=== PATIENT | female | born 1985 | race Caucasian/White ===

== ENCOUNTER → 2017-09-16 15:56 | Outpatient (CLI) | payer SELFPAY ==
[2017-09-16 17:08] LABS: Absolute Lymphocyte Count 1.79 X10^3/ul (0.83-4.51); Absolute Neutrophil Count 6.2 X10^3/uL (2.0-7.7); Basophil# 0.02 X10^3/uL; Basophil% 0.2 % (0-1); Eosinophil# 0.04 X10^3/uL; Eosinophils% 0.5 % (0-5); Hematocrit 33.4 % (37-47); Hemoglobin 11.5 g/dl (12.0-15.0); Lymphocyte # 1.79 X10^3/ul (4.0); Lymphocyte % 21.1 % (19-41); Mean Corp Hgb Conc 34.4 g/gl (32-36); Mean Corpuscular Hgb 31.7 pg (27.0-32.0); Mean Platelet Vol. 8.9 fl (6.2-12.0); Monocyte# 0.37 X10^3/uL; Monocyte% 4.4 % (0-10); Neutrophil # 6.23 X10^3/uL (2.7-7.7); Neutrophil % 73.6 % (47-70); Platelet Count 229 K/mm3 (150-450); RBC Distribution Width CV 12.8 % (11.6-14.6); RBC Distribution Width SD 41.9 fl (35.1-43.9); Red Blood Count 3.63 M/mm3 (4.2-5.4); White Blood Count 8.5 K/mm3 (4.4-11.0)
[2017-09-16 17:14] LABS: POSITIVE COUNT NO; POSITIVE DIFFERENTIAL NO; POSITIVE MORPHOLOGY NO
[2017-09-16 18:34] LABS: HIV - WCH Non-Reactive (Nonreactive)
[2017-09-16 19:51] LABS: Chlamydia Trachomatis by PCR Negative (Negative); Neisserai gonorrhoeae by PCR Negative (Negative); Probe Check PASS; Sample Adequacy Control PASS; Specimen Processing Control PASS
[2017-09-18 11:45] LABS: HEPATITIS B SURFACE AG Negative (Negative)
[2017-09-20 02:54] LABS: Rapid Plasmin Reagin (RPR) NONREACTIVE (NONREACTIVE)
== END ==
LOC: POLAB3 16:03 → LAB 16:11
PROVIDERS: Visit Provider Obstetrics & Gynecology
DX: Z34.82 Encounter for supervision of other normal pregnancy, second trimester (principal)
CPT/HCPCS: 36415; 85025; 86592; 86703; 86762; 86850; 86900; 87086; 87340; 87491; 87591

== ENCOUNTER → 2017-09-16 18:57 | Outpatient (CLI) | payer SELFPAY ==
[2017-09-20 11:43] LABS: HPV APTIMA, High Risk Negative (Negative)
== END ==
PROVIDERS: Visit Provider Obstetrics & Gynecology
DX: Z12.4 Encounter for screening for malignant neoplasm of cervix (principal)
CPT/HCPCS: 88175; G0145

== ENCOUNTER → 2017-10-28 12:07 | Outpatient (CLI) | payer SELFPAY ==
--- NOTE | 2017-10-28 12:12 | US_ITS ---
STUDY: SECOND AND THIRD TRIMESTER OBSTETRICAL ULTRASOUND REASON FOR EXAM: Female, 31 years old. Routine survey. LMP: June 05, 2017. TECHNIQUE: Transabdominal PRIOR ULTRASOUND: None. FINDINGS: There is a single intrauterine fetus. The fetus is in a transverse lie with the head on the maternal right side. There is demonstrated cardiac activity with a heart rate of 149 bpm. There is a normal amniotic fluid volume. The largest amniotic fluid pocket measures 3.9 cm x 3.7 cm. The placenta is posterior in location and is not low lying. There are Grade 0 placental changes. The cervix measures 6.3 cm in length. The adnexal regions are not visualized. BIOMETRY: BPD: 5.04 cm: 21 weeks, 2 days HC: 18.86 cm: 21 weeks, 2 days AC: 16.54 cm: 21 weeks, 5 days FL: 3.43 cm: 20 weeks, 6 days CI: 77% FL/BPD: 68% FL/HC: FL/AC: 21% HC/AC: 1.14 age by current US: 21 weeks, 2 days. LADARIUS by current US: March 08, 2018. Estimated weight: 408 grams, +/- 60 grams, 73 %. Age by LMP: 20 weeks, 5 days. LADARIUS by LMP: March 12, 2018. ANATOMY: Gender: Male Cranium: Normal lateral ventricles. Normal choroid plexus. Normal cerebellum. Normal cisterna magna. Normal face, nose and lips. Chest: Normal 4-chamber heart. Abdomen/Pelvis: Normal diaphragm. Normal stomach. Normal abdominal wall. Normal cord insertion. Normal 3 vessel cord. Normal kidneys. Normal bladder. Spine: Normal cervical spine. Normal thoracic spine. Normal lumbar spine. Normal sacrum. Extremities: Normal bilateral upper extremities. Normal bilateral lower extremities. US/OB Anatomy Scan IMPRESSION: Single live intrauterine gestation with a mean gestational age of 21 weeks and 2 days. Electronically Signed: Cb Alicea MD at 14:55 EDT Tel [phone], Service support ,
== END ==
PROVIDERS: Visit Provider Nurse Practitioner Women's Health
DX: Z36.3 Encounter for antenatal screening for malformations (principal)
CPT/HCPCS: 76805

== ENCOUNTER → 2017-12-11 10:12 | Outpatient (CLI) | payer OTHER, SELFPAY ==
[2017-12-11 11:40] LABS: Absolute Lymphocyte Count 1.44 X10^3/ul (0.83-4.51); Basophil# 0.03 X10^3/uL; Basophil% 0.4 % (0-1); Eosinophil# 0.05 X10^3/uL; Eosinophils% 0.6 % (0-5); Hematocrit 34.5 % (37-47); Hemoglobin 11.3 g/dl (12.0-15.0); Lymphocyte # 1.44 X10^3/ul (4.0); Lymphocyte % 17.9 % (19-41); Mean Corp Hgb Conc 32.8 g/gl (32-36); Mean Corpuscular Hgb 31.3 pg (27.0-32.0); Mean Corpuscular Volume 95.6 fL (81-99); Monocyte# 0.45 X10^3/uL; Monocyte% 5.6 % (0-10); Neutrophil # 6.04 X10^3/uL (2.7-7.7); Neutrophil % 75.1 % (47-70); POSITIVE COUNT NO; POSITIVE DIFFERENTIAL NO; POSITIVE MORPHOLOGY NO; Platelet Count 214 K/mm3 (150-450); RBC Distribution Width CV 13.1 % (11.6-14.6); RBC Distribution Width SD 46.1 fl (35.1-43.9); Red Blood Count 3.61 M/mm3 (4.2-5.4)
[2017-12-11 11:56] LABS: Glucose Challenge Gest 1H 50g 97 mg/dL (70-140)
== END ==
PROVIDERS: Visit Provider Obstetrics & Gynecology
DX: Z34.82 Encounter for supervision of other normal pregnancy, second trimester (principal)
CPT/HCPCS: 36415; 82950; 85025

== ENCOUNTER → 2018-02-18 13:33 | Outpatient (CLI) | payer OTHER, SELFPAY ==
[2018-02-18 14:45] LABS: Group B Strep DNA By PCR Negative (Negative); Internal Control PASS; Probe Check PASS; Specimen Processing Control PASS
== END ==
PROVIDERS: Visit Provider Nurse Practitioner Women's Health
DX: Z34.90 Encounter for supervision of normal pregnancy, unspecified, unspecified trimester (principal)
CPT/HCPCS: 87081; 87653

== ENCOUNTER 2018-03-05 14:40 | Outpatient (CLI) | payer SELFPAY ==
[2018-03-05 14:51] VITALS: BMI 24.2
--- NOTE | 2018-03-05 22:23 | OB.TRI.NOTE ---
- Problem List (1) False labor Status: Acute (2) Supervision of normal Status: Acute Qualifiers: Comment: PRR LADARIUS 03/15/18 Boy. Angelika Lainez Jamin, Ivan. Scott History of Present Illness Date of Service: 03/05/18 Was patient seen by the physician?: No Reason For Visit: R/O LABOR Date of Service: 03/05/18 Final LADARIUS: 03/15/18 Final LADARIUS Source: US >20 weeks Gestational age: 38 Weeks and 4 Days History of Present Illness: regular ctx q 10-15 Allergies No Known Allergies Allergy (Verified 03/05/18 14:58) - Pertinent Past Medical History Medical History: Past Medical History (Last Reviewed 03/04/18 @ 09:59 by Betsy Kearney) Gestational diabetes Physical Exam Cervix Dilation (cm): 5 NST - FHR Rate Baby A Baseline: 130 Variability:: Moderate Accelerations:: 15 x 15 Decelerations:: None NST Reactive:: Yes FHR Category:: Category I Uterine Activity:: q10-15 min Impression/Plan minimal cervical change- patient wishes to go home as they have decreased. labor precautions reviewed
== END 2018-03-05 17:00 | disposition home or self-care (01) ==
LOC: WPOUT 14:50 → WP 14:50
PROVIDERS: Visit Provider Obstetrics & Gynecology
DX: O47.1 False labor at or after 37 completed weeks of gestation (principal); Z3A.38 38 weeks gestation of pregnancy
CPT/HCPCS: 59025; 59050; 99218; G0378

== ENCOUNTER 2018-03-05 23:45 | Inpatient (IN) | payer SELFPAY, OTHER ==
[2018-03-06 00:16] LABS: Hemoglobin 11.1 g/dl (12.0-15.0); Mean Corp Hgb Conc 33.6 g/gl (32-36); Mean Corpuscular Hgb 32.1 pg (27.0-32.0); Mean Corpuscular Volume 95.4 fL (81-99); Mean Platelet Vol. 9.4 fl (6.2-12.0); Platelet Count 187 K/mm3 (150-450); RBC Distribution Width CV 13.4 % (11.6-14.6); Red Blood Count 3.46 M/mm3 (4.2-5.4); White Blood Count 11.5 K/mm3 (4.4-11.0)
[2018-03-06 00:20] LABS: Scan Indicated on CBC? Y/N NO
[2018-03-06] MEDS: Lactated Ringers 1,000 ML 50 ML IV (00:30)
[2018-03-06 00:36] VITALS: BMI 24.2
--- NOTE | 2018-03-06 00:39 | PCM.HP.OB ---
- Problem List (1) Active labor Status: Acute (2) Supervision of normal Status: Acute Qualifiers: Comment: PRR LADARIUS 03/15/18 Boy. Angelika Lainez Jamin, Ivan. Scott History Date of Admission: 03/06/18 Final LADARIUS: 03/15/18 Final LADARIUS Source: US >20 weeks Gestational age: 38 Weeks and 5 Days History of this : This is a 32 year-old, at 38 weeks gestational age presents IAL 7-8 cm dilated. she dneies any vaginal bleeding or lof, admits good fm no regular ctx Medical History: Medical History (Last Reviewed 03/04/18 @ 09:59 by Betsy Kearney) Gestational diabetes O24.419 Allergies No Known Allergies Allergy (Verified 03/05/18 14:58) Home Medications: Home Medications vitamin,calcium,plcqgvoj-nlgx-jyevd acid tablet 1 tab PO QDAY 09/16/17 Smoking Status: Never smoker Alcohol: None Number of Fetus(es): 1 Heart Tracin moderate vairability reactive no decels TOCO Analysis: q4-5 History Past Pregnancies: Past Pregnancies previous term one with diabetes, all uncomplicated Delivery Date Name GA/Weeks Outcome Route Weight Infant Gender Labor Length Anesthesia Delivery Location Provider FOB Labs: [facility] Results 03/05/18 03/05/18 23:57 23:57 WBC 11.5 H RBC 3.46 L Hgb 11.1 L Hct 33.0 L MCV 95.4 MCH 32.1 H MCHC 33.6 RDW 13.4 RDW Differential 46.0 H Plt Count 187 MPV 9.4 Blood Type Pending Antibody Screen Pending Social History Alleged father Scott Hx Smoking No Smoking Status Never smoker Expected Infant Delivery Method: Spontaneous Vaginal Review of Systems Constitutional: Denies: Fever, Malaise Eyes: Denies: Blurred vision, Vision Change HEENT: Denies: Head Aches, Visual Changes Cardiovascular: Denies: Chest Pain, Palpitations Respiratory: Denies: Cough, Shortness of Breath, Wheezing Gastrointestinal: Reports: Abdominal Pain. Denies: Diarrhea, Nausea, Vomiting Genitourinary: Denies: Dysuria, Hematuria Gynecological: Denies: Vaginal bleeding, Vaginal discharge Musculoskeletal: Denies: Joint Pain, Muscle pain Skin: Denies: Lesions, Rash Neurological: Denies: Blurred vision, Focal weakness, Headaches Psychiatric: Denies: Anxiety, Depression Endocrine: Denies: Heat/ Cold Intolerance Hematologic/ Lymphatic: Denies: Easy Bruising, Easy Bleeding Physical Exam General: Alert, Cooperative, No apparent distress HEENT: Atraumatic, Normocephalic. Negative for: Thyromegaly, Lymphadenopathy Cardiovascular: Regular rate Lungs: Normal air movement Abdomen: Soft, Non Tender, Gravid Neurological: Deep Tendon Reflexes 2+/4 and Symmetrical, Neuro grossly intact. 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 Negative for: Vulvar lesions Estimated gestational size: Appropriate for gestational size Presentation: Cephalic Cervix Dilation (cm): 7.5 Effacement (%): 80 Assessment/Plan All Active Problems (Last Reviewed 03/04/18 @ 09:59 by Betsy Kearney) False labor (Acute) Active labor (Acute) Supervision of normal (Acute) This is a 32 year-old, at 38 weeks gestational age presents IAL Patient presents IAL, plan expectant management for , pitocin/AROM PRN if needed. Pain management: natural. GBS negative. Management of any complications: none I have reviewed the [facility] and made any clinically relevant updates.
--- NOTE | 2018-03-06 00:44 | HP.PCM_ITS ---
- Problem List (1) Active labor Status: Acute (2) Supervision of normal Status: Acute Qualifiers: Comment: PRR LADARIUS 03/15/18 Boy. Angelika Lainez Jamin, Ivan. Scott History Date of Admission: 03/06/18 Final LADARIUS: 03/15/18 Final LADARIUS Source: US >20 weeks Gestational age: 38 Weeks and 5 Days History of this : This is a 32 year-old, at 38 weeks gestational age presents IAL 7-8 cm dilated. she dneies any vaginal bleeding or lof, admits good fm no regular ctx Medical History: Medical History (Last Reviewed 03/04/18 @ 09:59 by eBtsy Kearney) Gestational diabetes O24.419 Allergies No Known Allergies Allergy (Verified 03/05/18 14:58) Home Medications: Home Medications vitamin,calcium,bjqwslst-lbsr-oollf acid tablet 1 tab PO QDAY 09/16/17 Smoking Status: Never smoker Alcohol: None Number of Fetus(es): 1 Heart Tracin moderate vairability reactive no decels TOCO Analysis: q4-5 History Past Pregnancies: Past Pregnancies previous term one with diabetes, all uncomplicated Delivery Date Name GA/Weeks Outcome Route Weight Infant Gender Labor Length Anesthesia Delivery Location Provider FOB Labs: [facility] & Results 03/05/18 03/05/18 23:57 23:57 WBC 11.5 H RBC 3.46 L Hgb 11.1 L Hct 33.0 L MCV 95.4 MCH 32.1 H MCHC 33.6 RDW 13.4 RDW Differential 46.0 H Plt Count 187 MPV 9.4 Blood Type Pending Antibody Screen Pending Social History Alleged father Scott Hx Smoking No Smoking Status Never smoker Expected Infant Delivery Method: Spontaneous Vaginal Review of Systems Constitutional: Denies: Fever, Malaise Eyes: Denies: Blurred vision, Vision Change HEENT: Denies: Head Aches, Visual Changes Cardiovascular: Denies: Chest Pain, Palpitations Respiratory: Denies: Cough, Shortness of Breath, Wheezing Gastrointestinal: Reports: Abdominal Pain. Denies: Diarrhea, Nausea, Vomiting Genitourinary: Denies: Dysuria, Hematuria Gynecological: Denies: Vaginal bleeding, Vaginal discharge Musculoskeletal: Denies: Joint Pain, Muscle pain Skin: Denies: Lesions, Rash Neurological: Denies: Blurred vision, Focal weakness, Headaches Psychiatric: Denies: Anxiety, Depression Endocrine: Denies: Heat/ Cold Intolerance Hematologic/ Lymphatic: Denies: Easy Bruising, Easy Bleeding Physical Exam General: Alert, Cooperative, No apparent distress HEENT: Atraumatic, Normocephalic. Negative for: Thyromegaly, Lymphadenopathy Cardiovascular: Regular rate Lungs: Normal air movement Abdomen: Soft, Non Tender, Gravid Neurological: Deep Tendon Reflexes 2+/4 and Symmetrical, Neuro grossly intact. 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 Negative for: Vulvar lesions Estimated gestational size: Appropriate for gestational size Presentation: Cephalic Cervix Dilation (cm): 7.5 Effacement (%): 80 Assessment/Plan All Active Problems (Last Reviewed 03/04/18 @ 09:59 by Betsy Kearney) False labor (Acute) Active labor (Acute) Supervision of normal (Acute) This is a 32 year-old, at 38 weeks gestational age presents IAL Patient presents IAL, plan expectant management for , pitocin/AROM PRN if needed. Pain management: natural. GBS negative. Management of any complications: none I have reviewed the [facility] and made any clinically relevant updates.
[2018-03-06] MEDS: Oxytocin 30 units/NS 500 ml 30 UNITS/500 ML IV.SOLN 334 UNITS IV (02:55)
--- NOTE | 2018-03-06 03:12 | PCM.OB.VAG ---
- Problem List (1) Active labor Status: Acute (2) Supervision of normal Status: Acute Qualifiers: Comment: PRR LADARIUS 03/15/18 Boy. Angelika Lainez Jamin, Ivan. Scott Vaginal Delivery Maternal Presentation: Active Labor 38 week IAL 7-8 cm Amniotic Membrane Rupture Type: Artificial Amniotic Fluid Description: Clear Final LADARIUS: 03/15/18 Gestational age: 38 Weeks and 5 Days Date of Procedure: 03/06/18 Pre-Operative Diagnosis: ial Post-Operative Diagnosis: same Surgery/ Procedure Performed: Spontaneous Vaginal Delivery Type of Anesthesia: None Description of Procedure: Patient began pushing and delivered the head in the ORLIN presentation. The head was delivered atraumatically. The anterior and posterior shoulders delivered without complication followed by the rest of the infant and the was placed on the maternal abdomen. Delayed cord clamping was employed for approximately 60 seconds. Cord was clamped and cut and gentle traction was applied to the cord and the placenta delivered spontaneously immediately following it was noted to be intact with three-vessel cord. The perineum and vagina were inspected and noted to have no laceration. EBL was 300 cc. Patient and tolerated delivery well. Presentation: ORLIN Placental Delivery Description: Spontaneous Placenta Disposition: [facility] Cord Entanglement: None Estimated Blood Loss: 300 Infant A gender: Male Episiotomy Description: None Laceration: None Medications given after delivery: IV Pitocin Complications: None
[2018-03-06] MEDS: Oxytocin 30 units/NS 500 ml 30 UNITS/500 ML IV.SOLN 167 UNITS IV (03:25)
[2018-03-06] MEDS: Acetaminophen 325 MG Tablet PO (03:50)
[2018-03-06 08:00] VITALS: BP 99/57; PULSE 92; RESP 16; TEMP 36.5; O2SAT 97
[2018-03-06 12:00] VITALS: BP 103/64; PULSE 112; RESP 18; TEMP 36.9; O2SAT 97
[2018-03-06] MEDS: Prenatal Vits Tablet 1 TABLET PO (14:07)
[2018-03-06 16:00] VITALS: BP 110/62; PULSE 96; RESP 18; TEMP 36.6; O2SAT 96
[2018-03-06 20:40] VITALS: BP 108/63; PULSE 102; RESP 18; TEMP 36.6; O2SAT 95
[2018-03-06 23:55] VITALS: BP 113/64; PULSE 87; RESP 18; TEMP 36.3; O2SAT 98
[2018-03-07 03:30] VITALS: BP 101/64; PULSE 72; RESP 18; TEMP 36.3; O2SAT 97
[2018-03-07] MEDS: Ketorolac 10 MG Tablet PO (03:39)
--- NOTE | 2018-03-07 04:32 | PCM.DCVAG ---
Discharge Diet: No Restrictions Discharge Activity: Return to Normal Activity, May not drive while taking narcotic pain medications., May Shower May resume sexual activity in: 4-6 weeks Call your doctor if your incision/area has: Continuous Slow Oozing, Sudden Increased Bleeding, Increased Pain/ Swelling, Increased Redness, Foul Smelling Discharge Additional Instructions: If you experience any of the following, contact your healthcare provider. Bleeding that soaks a pad every hour for 2 hours Fever 100.4 or higher Unrelieved incision or abdominal pain Swelling, redness, discharge or bleeding from your incision or episiotomy site Your incision begins to separate Problems urinating (including inability to urinate or burning while urinating). Visual changes Severe headache Flu-like symptoms Pain or redness in one of both of your breasts Pain, warmth, tenderness or swelling in your legs, especially the calf area Frequent nausea and vomiting Symptoms of depression or anxiety If you experience any of the following, call 911 or go to the nearest Emergency Room. Chest pain Problems breathing Seizure activity Partial or complete paralysis of a body part, slurred speech, weakness or drooping of the face, or a sudden inability to walk or hold your balance Allergies/Adverse Reactions: Allergies No Known Allergies Allergy (Verified 03/05/18 14:58) Medications to take at Discharge vitamin,calcium,brfipanr-jwrf-yficy acid tablet 1 tab PO QDAY 09/16/17 Please Follow Up With: Joanie Rocha MD - [phone] When: Call to make an appointment with your doctor in 6 weeks. If you had elevated Blood pressure or 4th degree laceration you will need to be seen in 2 weeks. Primary Care Physician: Care Physician,No Primary [Primary Care Provider] - Test Results: Test results from this visit will be discussed in further detail at your follow-up appointment, if applicable.
[2018-03-07 08:25] VITALS: BP 107/69; PULSE 73; RESP 17; TEMP 36.7; O2SAT 99
[2018-03-07] MEDS: Prenatal Vits Tablet 1 TABLET PO (12:22)
--- NOTE | 2018-03-07 13:30 | PCM.PN.OB ---
Patient Problems: Active and Suspected Problems (Last Reviewed 03/04/18 @ 09:59 by Betsy Kearney) Active labor (Acute) Subjective: doingw ell no complaints - Physical Exam General: Alert, Oriented x3 Vital Signs Temp Pulse Resp BP Pulse Ox 98.0 F 73 17 107/69 99 03/07/18 08:25 03/07/18 08:25 03/07/18 08:25 03/07/18 08:25 03/07/18 08:25 Oxygen Delivery Method Room Air Weight: 141 lb Body Mass Index (BMI) 24.2 Intake and Output for Last 24 Hours 03/05/18 03/06/18 03/07/18 23:59 23:59 23:59 Output Total 300 / 300 Balance -300 / -300 Medical Necessity - Tobacco Use Smoking Status: Never smoker Assessment/Plan All Active Problems (Last Reviewed 03/04/18 @ 09:59 by Betsy Kearney) False labor (Acute) Active labor (Acute) Supervision of normal (Acute) s/p routine care [facility]
[2018-03-07 14:00] VITALS: BP 109/70; PULSE 79; RESP 17; TEMP 36.7; O2SAT 98
[2018-03-07 18:00] VITALS: BP 104/70; PULSE 78; RESP 17; TEMP 36.7; O2SAT 98
== END 2018-03-07 21:00 | disposition home or self-care (01) | DRG 775 ==
PROVIDERS: Admitting Provider Obstetrics & Gynecology; Visit Provider Obstetrics & Gynecology
DX: O80 Encounter for full-term uncomplicated delivery (principal); Z37.0 Single live birth; Z3A.38 38 weeks gestation of pregnancy
CPT/HCPCS: 59025; 59050; 85027; 86850; 86900; 99218; J7120; G0378

== ENCOUNTER → 2018-04-16 14:29 | Outpatient (CLI) | payer OTHER, SELFPAY ==
[2018-04-22 13:10] LABS: HPV APTIMA, High Risk Negative (Negative)
== END ==
PROVIDERS: Referring Provider Nurse Practitioner Women's Health; Visit Provider Nurse Practitioner Women's Health
DX: Z12.4 Encounter for screening for malignant neoplasm of cervix (principal)
CPT/HCPCS: 88175; G0145

== ENCOUNTER 2018-07-31 14:10 | Outpatient (CLI) | payer OTHER, SELFPAY | END 2018-07-31 15:15 | disposition home or self-care (01) | LOC: WPOUT 14:13 → WP 14:15 | PROVIDERS: Referring Provider Obstetrics & Gynecology; Visit Provider Obstetrics & Gynecology | DX: Z39.1 Encounter for care and examination of lactating mother (principal) | CPT/HCPCS: 96152 ==

== ENCOUNTER → 2019-09-29 | Outpatient (CLI) | payer OTHER, SELFPAY | END | disposition home or self-care (01) | PROVIDERS: Referring Provider Obstetrics & Gynecology; Visit Provider Obstetrics & Gynecology | DX: O09.529 Supervision of elderly multigravida, unspecified trimester (principal); Z3A.00 Weeks of gestation of pregnancy not specified | CPT/HCPCS: 87086; 87088 ==

== ENCOUNTER → 2019-10-30 08:09 | Outpatient (CLI) | payer SELFPAY ==
--- NOTE | 2019-10-30 08:13 | US_ITS ---
STUDY: SECOND AND THIRD TRIMESTER OBSTETRICAL ULTRASOUND REASON FOR EXAM: Female, 33 years old anatomy LMP: June 12, 2019. TECHNIQUE: Transabdominal TECHNICAL QUALITY: Adequate. PRIOR ULTRASOUND: None. FINDINGS: There is a single intrauterine fetus. The fetus is in an transverse lie with the head on the maternal left side. There is demonstrated cardiac activity with a heart rate of 143 bpm. There is a normal amniotic fluid volume. The largest amniotic fluid pocket measures 6 cm x 2.4 cm. The amniotic fluid index (HAILY) is within normal limits. The placenta is anterior in location and is not low lying. There are Grade 0 placental changes. The cervix measures 4.2 cm in length. The bilateral adnexal regions are normal. BIOMETRY: BPD: 4.45 cm: 19 weeks, 3 days HC: 17.46 cm: 19 weeks, 6 days AC: 15.81 cm: 20 weeks, 6 days FL: 3.25 cm: 20 weeks, 0 days CI: 74% FL/BPD: 73% FL/HC: FL/AC: 21% HC/AC: 1.10 age by current US: 19 weeks, 5 days. LADARIUS by current US: March 20, 2020. Estimated weight: 356 grams, +/- 53 grams, 71 %. Age by LMP: 20 weeks, 0 days. LADARIUS by LMP: March 18, 2020. US/OB Anatomy Scan IMPRESSION: Single live intrauterine gestation with a mean gestational age of 19 weeks and 5 days. Electronically Signed: Cb Alicea, at 10:50 EDT , Service support ,
== END ==
PROVIDERS: Referring Provider Obstetrics & Gynecology; Visit Provider Obstetrics & Gynecology
DX: O09.92 Supervision of high risk pregnancy, unspecified, second trimester (principal); Z3A.19 19 weeks gestation of pregnancy
CPT/HCPCS: 76805

== ENCOUNTER → 2019-12-22 08:37 | Outpatient (CLI) | payer OTHER, SELFPAY ==
[2019-12-22 09:27] LABS: Absolute Lymphocyte Count 1.58 X10^3/uL (0.83-4.51); Absolute Neutrophil Count 6.5 X10^3/uL (2.0-7.7); Basophil# 0.05 X10^3/uL; Basophil% 0.6 % (0-1); Eosinophil# 0.11 X10^3/uL; Eosinophils% 1.2 % (0-5); Hematocrit 35.7 % (37-47); Hemoglobin 11.6 g/dL (12.0-15.0); Lymphocyte # 1.58 X10^3/ul (4.0); Lymphocyte % 17.7 % (19-41); Mean Corp Hgb Conc 32.5 g/dL (32-36); Mean Corpuscular Hgb 31.7 pg (27.0-32.0); Mean Corpuscular Volume 97.5 fL (81-99); Mean Platelet Vol. 8.8 fl (6.2-12.0); Monocyte% 5.6 % (0-10); NRBC Flagged by Analyzer 0 % (0-5); Neutrophil # 6.51 X10^3/uL (2.7-7.7); Neutrophil % 73.1 % (47-70); Platelet Count 217 K/mm3 (150-450); RBC Distribution Width CV 12.7 % (11.6-14.6); RBC Distribution Width SD 45.3 fl (35.1-43.9); Red Blood Count 3.66 M/mm3 (4.2-5.4); White Blood Count 8.9 K/mm3 (4.4-11.0)
[2019-12-22 09:41] LABS: Glucose Challenge Gest 1H 50g 95 mg/dL (70-140)
== END ==
PROVIDERS: Nurse Practitioner Women's Health; Referring Provider Obstetrics & Gynecology; Visit Provider Obstetrics & Gynecology
DX: O09.529 Supervision of elderly multigravida, unspecified trimester (principal); O09.299 Supervision of pregnancy with other poor reproductive or obstetric history, unspecified trimester; Z3A.00 Weeks of gestation of pregnancy not specified; Z86.32 Personal history of gestational diabetes
CPT/HCPCS: 82950; 85025; 86850; 86900; 86901

== ENCOUNTER → 2020-01-29 | Outpatient (CLI) | payer OTHER, SELFPAY ==
[2020-01-29 09:12] VITALS: BMI 24.7
[2020-01-29 13:24] LABS: Protein, Urine (Random) 51.5 mg/dL (<11.9); Protein:Creat Ratio 301 mg/g CRE (0-200)
== END | disposition home or self-care (01) ==
LOC: LABSPEC 12:47
PROVIDERS: Referring Provider Obstetrics & Gynecology; Visit Provider Obstetrics & Gynecology
DX: O12.10 Gestational proteinuria, unspecified trimester (principal); Z3A.00 Weeks of gestation of pregnancy not specified
CPT/HCPCS: 82570; 84156

== ENCOUNTER → 2020-02-02 | Outpatient (CLI) | payer OTHER, SELFPAY | END | disposition home or self-care (01) | LOC: LABSPEC 17:09 | PROVIDERS: Referring Provider Obstetrics & Gynecology; Visit Provider Obstetrics & Gynecology | DX: N39.0 Urinary tract infection, site not specified (principal) | CPT/HCPCS: 87086; 87088 ==

== ENCOUNTER → 2020-02-12 | Outpatient (CLI) | payer OTHER, SELFPAY ==
[2020-02-12 14:33] LABS: Protein, Urine (Random) 10.4 mg/dL (<11.9); Protein:Creat Ratio 267 mg/g CRE (0-200)
== END | disposition home or self-care (01) ==
LOC: LABSPEC 13:06
PROVIDERS: Referring Provider Obstetrics & Gynecology; Visit Provider Obstetrics & Gynecology
DX: O09.529 Supervision of elderly multigravida, unspecified trimester (principal); O09.299 Supervision of pregnancy with other poor reproductive or obstetric history, unspecified trimester; Z3A.00 Weeks of gestation of pregnancy not specified; Z86.32 Personal history of gestational diabetes; Z64.1 Problems related to multiparity
CPT/HCPCS: 82570; 84156

== ENCOUNTER → 2020-02-19 12:54 | Outpatient (CLI) | payer SELFPAY, OTHER ==
--- NOTE | 2020-02-19 12:57 | US_ITS ---
STUDY: SECOND AND THIRD TRIMESTER OBSTETRICAL ULTRASOUND REASON FOR EXAM: Female, 34 years old . Growth. LMP: 06/12/2019. TECHNIQUE: Transabdominal TECHNICAL QUALITY: Adequate. PRIOR ULTRASOUND: 10/30/2019. FINDINGS: There is a single intrauterine fetus. The fetus is in a cephalic presentation. There is demonstrated cardiac activity with a heart rate of 143 bpm. There is a normal amniotic fluid volume. The largest amniotic fluid pocket measures 3.83 cm. The amniotic fluid index (HAILY) is 13.27 cm. The placenta is anterior in location and is not low lying. There are Grade 1 placental changes. The cervix measures 3.4 cm in length. The adnexal regions are not visualized. BIOMETRY: BPD: 8.81 cm: 35 weeks, 5 days HC: 32.28 cm: 36 weeks, 4 days AC: 32.36 cm: 36 weeks, 2 days FL: 7.01 cm: 36 weeks, 0 days CI: 78 FL/BPD: 80 FL/HC: FL/AC: 22 HC/AC: 1.00 age by current US: 36 weeks, 1 days. LADARIUS by current US: 03/17/2020. Estimated weight: 2860 grams, +/- 418 grams, 55 %. age by prior US: 35 weeks, 5 days. LADARIUS by prior US: 03/20/2020. Age by LMP: 36 weeks, 0 days. LADARIUS by LMP: 03/18/2020. US/OB Limited With Biometrics IMPRESSION: 1. Live single intrauterine at 36 weeks, 1 day. LADARIUS is 03/17/2020. There is adequate interval growth since the prior ultrasound. 2. EFW of 2860 g. 3. HAILY of 13.27 cm. 4. Anterior grade 1 placenta. 5. Vertex presentation. Electronically Signed: Mychal Carbone DO at 18:04 EDT Tel [phone], Service support ,
== END ==
PROVIDERS: Referring Provider Obstetrics & Gynecology; Visit Provider Obstetrics & Gynecology
DX: O09.90 Supervision of high risk pregnancy, unspecified, unspecified trimester (principal); O09.529 Supervision of elderly multigravida, unspecified trimester; O23.40 Unspecified infection of urinary tract in pregnancy, unspecified trimester; Z3A.00 Weeks of gestation of pregnancy not specified
CPT/HCPCS: 76816; 87077; 87081; 87086

== ENCOUNTER 2020-03-12 01:55 | Inpatient (IN) | payer SELFPAY, OTHER ==
[2020-03-12] VITALS (25 sets, daily range): BP systolic 103–125; BP diastolic 57–84; PULSE 85–118; RESP 15–18; TEMP 36.3–36.8; O2SAT 96–98; BMI 25.4
[2020-03-12] MEDS: Lactated Ringers 1,000 ML 50 ML IV (02:25)
[2020-03-12 02:36] LABS: Absolute Lymphocyte Count 1.67 X10^3/uL (0.83-4.51); Absolute Neutrophil Count 9.5 X10^3/uL (2.0-7.7); Basophil# 0.04 X10^3/uL; Basophil% 0.3 % (0-1); Eosinophil# 0.06 X10^3/uL; Eosinophils% 0.5 % (0-5); Hematocrit 33.4 % (37-47); Hemoglobin 11.4 g/dL (12.0-15.0); Lymphocyte # 1.67 X10^3/ul (4.0); Lymphocyte % 13.9 % (19-41); Mean Corp Hgb Conc 34.1 g/dL (32-36); Mean Corpuscular Hgb 32.9 pg (27.0-32.0); Mean Corpuscular Volume 96.5 fL (81-99); Mean Platelet Vol. 8.7 fl (6.2-12.0); Monocyte# 0.66 X10^3/uL; Monocyte% 5.5 % (0-10); NRBC Flagged by Analyzer 0 % (0-5); Neutrophil # 9.52 X10^3/uL (2.7-7.7); Neutrophil % 79.1 % (47-70); Platelet Count 161 K/mm3 (150-450); RBC Distribution Width SD 46.4 fl (35.1-43.9); Red Blood Count 3.46 M/mm3 (4.2-5.4)
[2020-03-12 04:31] LABS: Hepatitis B Surface Antigen Non-Reactive (Nonreactive)
[2020-03-12 04:44] LABS: HIV - WCH Non-Reactive (Nonreactive)
[2020-03-12 05:30] LABS: Chlamydia Trachomatis by PCR Negative (Negative); Neisserai gonorrhoeae by PCR Negative (Negative); Probe Check PASS; Sample Adequacy Control PASS; Specimen Processing Control PASS
[2020-03-12] MEDS: Oxytocin 30 units/NS 500 ml 30 UNITS/500 ML IV.SOLN IV (08:50)
[2020-03-12] MEDS: Lactated Ringers 1,000 ML 200 ML IV (10:35)
[2020-03-12] MEDS: Oxytocin 30 units/NS 500 ml 30 UNITS/500 ML IV.SOLN 334 UNITS IV (12:15)
--- NOTE | 2020-03-12 12:23 | PCM.HPOB.BLA ---
- Problem List (1) AMA (advanced maternal age) multigravida 35+ Status: Acute Qualifiers: Trimester: second trimester Qualified Code(s): O09.522 - Supervision of elderly multigravida, second trimester Comment: genetic counseling provided, declined, nl anatomy. recommend 36 week growth US. (2) Grand multipara Status: Acute (3) H/O gestational diabetes in prior , currently Status: Acute Comment: nl glucola (4) Status: Acute Qualifiers: Weeks of gestation: 37 weeks Qualified Code(s): Z3A.37 - 37 weeks gestation of Comment: declines genetic, carrier and NTD; Anatomy US normal. Self pay package- ordered at NOB urine culture, CBC and T&S (5) Supervision of high risk , antepartum Status: Acute Comment: PRR (jun std testing) LADARIUS: 03/18/2020 PC: Angelika Mathews Jamin, Ivan, Isaiah Spouse: Scott (6) UTI in Status: Acute Comment: macrobid. repeat culture 02/18 History and Physical Date of Admission: 03/13/20 Intake Vital Signs 03/11/20 BMI 20.0 03/11/20 Height 5 ft 4 in 03/11/20 Weight: 149 lb 4 oz 03/11/20 BMI 25.6 03/11/20 BP 110/60 Intake Visit Reasons: 39 WK OB Hunter Skin Diver Required: No Accompanied by: self Allergies No Known Allergies Allergy (Verified 03/11/20 09:25) Medications prenat.vits,jose,[id number]-bdpup 1 tab PO QDAY 09/16/17 history Confirmed 03/11/20 Last Menstral Period: 06/12/19 Zika: Zika virus screening: Negative : No PFSH PFSH Medical History Gestational diabetes (Acute) Surgical History No significant past surgical history (Acute) Family History Grandfather Myocardial infarction Cancer prostate Grandmother Cancer Social History (Updated 03/11/20 @ 09:[address] 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 Date Name GA/Weeks Outcome Route Bth Weight Gen Labor Lgth Anesthesia Del Locatn Provider FOB Unknown 2007 Reid 41 live - full term 8lbs 7oz Male epidural [facility] Dr. Dowling Unknown 2009 Miscarriage Unknown 2011 Angelika 39 live - full term 8 lbs Female none [facility] SM Unknown 2013 Zan 39 live - full term 8 pounds 6 oz Male none [facility] Unknown 2015 Mamadou 39 live - full term 9 1/2 pounds Male none [facility] Lan 03/05/18 Juan 38 live - full term 8lbs 15oz Male none [facility] EDUARDO Delivery Date: On 09/29/19 @ 15:24 Tyra Garcia toxemia Delivery Date: No notes to display Delivery Date: On 09/16/17 @ 15:38 Joanie Rocha GDM Delivery Date: No notes to display Delivery Date: No notes to display Delivery Date: 03/05/18 No notes to display HPI 39 WK OB: Details: HALI REEVES is a 34 year old he 7 P5 presents at 39 weeks in active labor 4 cm dilated OB Visit LADARIUS Calculator Estimated Delivery Date Method Current WG Current Estimate 03/18/20 LMP (Certain) 39w 0d Expected Delivery Route/Plan Labor Preferences- labor support person: Scott pain management options preferred: limited intervention cut cord/dad catch: cord : yes PP control planned: considering BS Discussed r/b/i/a to vacuum assisted delivery, forceps delivery, and section. All questions answered. special requests: Denies Specific Issue/Plans flu vaccine: declined tdap vaccine: decline rhogam: na LARC form signed: yes movement and labor precautions reviewed. Problem list reviewed and updated with the most current plan of care details and appropriate orders placed. Relevant counseling for the gestational age provided. Continue routine care and follow up unless otherwise noted in visit notes/problem list details Initial Weight: 118 lb Date EGA Weight BP Urine Prot Glucose FHR FuHt Pres Dilation Effaced St Visit Note 09/29/19 15w 4d 118 lb (+0 oz) 160 11/27/19 24w 0d 133 lb (+15 lb) 112/60 Negative Negative 150 SM- no vb lof good fm no regular ctx 12/22/19 27w 4d 140 lb 6 oz (+22 lb 6 oz) 116/70 Negative Negative 148 28 MH-No VB, LOF. Good FM. 28 wk labs pending. Note bilateral lower extremities varicosities-states nontender. Encourage support hose, supportive shoes. Declines tdap 01/15/20 31w 0d 143 lb (+25 lb) 124/62 Negative Negative 150 30 SM- no vb lof good fm no regular ctx 01/29/20 33w 0d 144 lb (+26 lb) 106/70 1+ Negative 140 32 Sm- no vb lof good fm nor egular ctx 1+ protein no uti symptoms, nl bp, check urine protein cr ratio 02/12/20 35w 0d 147 lb 2 oz (+29 lb 2 oz) 100/62 Negative Negative 160 34 SM- treated for UTI last week. no vb lof good fm. growth us ordered 02/19/20 36w 0d 148 lb 8 oz (+30 lb 8 oz) 110/72 Negative Negative 150 35 Cephalic 1 20 -1 SM- repeat urine culture. no vb lof good fm no regular ctx gbs today 02/26/20 37w 0d 147 lb 6 oz (+29 lb 6 oz) 110/64 Negative Negative 140 36 Cephalic 1.5 40 -1 SM- no vb lof good fm no reuglar ctx 03/03/20 37w 6d 147 lb (+29 lb) 112/60 Negative Negative 150 38 Cephalic 2.5 40 -1 GP - Denies LOF/VB/DFM. No regular contractions. Labor precautions reviewed. Encouraged to come to hospital slightly earlier given GBS+. 03/11/20 39w 0d 149 lb 4 oz (+31 lb 4 oz) 110/60 Trace Negative 150 39 Cephalic 3 60 -1 SM- no vb lof good fm feeling some ctx. declines covid testing peripartum. ACOG First Trimester First Trimester: Desire for , Alcohol, Tobacco Cessation, Illicit/Recreational Drug/Substance Use, Intimate Partner Violence, Barriers to care, Unstable Housing, Communication Barriers, Environmental/Work Hazards, Anticipated Course of Care, Toxoplasmosis Precations, Use of Any medications, Sexual activity, Exercise, Dental Care, Sauna/Hot tub use, Seat Belt use, Childbirth classes/Hospital facilities, , Travel, Indications for US and Screening for Aneuploidy Second Trimester Second Trimester: Signs and Symptoms of Labor, Selecting a care provider, Reproductive Life Planning, Care Planning, Tobacco Cessation, Depression/Anxiety and Intimate Partner Violence Third Trimester Third Trimester: Pain Management Plans, Labor support person(s), Immediate Larc, Movement Monitoring and Feeding Yes ; discussed Trial of Labor after Counseling or discussed Circumcision preference Diagnostics Diagnostics Diagnostics Blood Type A POSITIVE 12/22/19 Antibody Screen NEGATIVE 12/22/19 Glucose 1 Hr 50 gm 95 mg/dL (70-140) 12/22/19 Hgb 11.6 g/dL (12.0-15.0) L 12/22/19 Hct 35.7 % (37-47) L 12/22/19 Details: HIV: Urine Culture: Sequential Screen: NIPT Screen: ROS Const Reports system reviewed and no additional complaints, except as docu Card Reports system reviewed and no additional complaints, except as docu Resp Reports system reviewed and no additional complaints, except as docu GI Reports system reviewed and no additional complaints, except as docu, Reports nausea Reports system reviewed and no additional complaints, except as docu Musc Reports system reviewed and no additional complaints, except as docu Exam Const General: cooperative, healthy appearing, comfortable, anxious HENMT Head: normal to inspection Nose: external nose normal Face and sinus: normal facial exam Neck Neck: normal visual inspection, full ROM, no lymphadenopathy Thyroid: thyroid normal Chest Chest palpation & inspection: normal inspection of the chest Resp Effort & Inspection: normal respiratory effort GI Inspection: normal to inspection Palpation: soft, other (gravid uterus) Other: vertex and appropriate size for gestational age Other: Cervical Exam: Extrem General: pedal edema Results POC Urinalysis 2 Dip (Clinic) Office Urine Glucose Negative Last Edit by Fatou Rivas on 03/11/20 09:30 Office Urine Protein Trace Last Edit by Fatou Rivas on 03/11/20 09:30 Assessment & Plan 34-year-old G7, P5 at 39 weeks presents in active labor Patient presents IAL, plan expectant management for , Pitocin/AROM if needed. Pain management: prefers minimal intervention. GBS negative for beta strep, positive for different type of Streptococcus which is not clinically significant so no antibiotics indicated. Management of any complications: None I have reviewed the [facility] and made any clinically relevant updates. Orders Orders: POC Urinalysis 2 Dip (Clinic) Today 34-year-old Coding Level of Care Code OB Routine
[2020-03-13] VITALS (8 sets, daily range): BP systolic 100–106; BP diastolic 58–69; PULSE 70–90; RESP 14–16; TEMP 36.6–37.2; O2SAT 97–99
--- NOTE | 2020-03-13 07:21 | PCM.OPRPT ---
Problem List (1) AMA (advanced maternal age) multigravida 35+ Status: Acute Qualifiers: Trimester: second trimester Qualified Code(s): O09.522 - Supervision of elderly multigravida, second trimester Comment: genetic counseling provided, declined, nl anatomy. recommend 36 week growth US. (2) Grand multipara Status: Acute (3) H/O gestational diabetes in prior , currently Status: Acute Comment: nl glucola (4) Status: Acute Qualifiers: Weeks of gestation: 37 weeks Qualified Code(s): Z3A.37 - 37 weeks gestation of Comment: declines genetic, carrier and NTD; Anatomy US normal. Self pay package- ordered at NOB urine culture, CBC and T&S (5) Supervision of high risk , antepartum Status: Acute Comment: PRR (jun std testing) LADARIUS: 03/18/2020 PC: Angelika Mathews Jamin, Ivan, Isaiah Spouse: Scott (6) UTI in Status: Acute Comment: macrobid. repeat culture 02/18 Vaginal Delivery Maternal Presentation: Active Labor 34-year-old G7, P5 at 39 weeks presents in active labor Amniotic Membrane Rupture Type: Artificial Amniotic Fluid Description: Clear Final LADARIUS: 03/17/20 Gestational age: 39 Weeks and 3 Days Date of Procedure: 03/12/20 Pre-Operative Diagnosis: In active labor Post-Operative Diagnosis: Same Surgery/ Procedure Performed: Spontaneous Vaginal Delivery Type of Anesthesia: None Description of Procedure: Patient began pushing and delivered the head in the ORLIN presentation. The head was delivered atraumatically. The anterior and posterior shoulders delivered without complication followed by the rest of the infant and the was placed on the maternal abdomen. Delayed cord clamping was employed for approximately 60 seconds. Cord was clamped and cut and gentle traction was applied to the cord and the placenta delivered spontaneously immediately following it was noted to be intact with three-vessel cord. The perineum and vagina were inspected and noted to have no laceration. EBL was 100 cc. Patient and tolerated delivery well. Presentation: ORLIN Placental Delivery Description: Spontaneous Placenta Disposition: [facility] Cord Vessel Description: 3 Vessels Cord Entanglement: None Estimated Blood Loss: 100 A gender: Female Episiotomy Description: None Laceration: None Medications given after delivery: IV Pitocin Complications: None Multi Select Codes - Urinary/Genital Urinary/Genital CPT Codes: 93368 Vaginal Delivery [facility]
--- NOTE | 2020-03-13 07:22 | PCM.PN.OB ---
Subjective: Patient doing well without complaints. Tolerating PO. Ambulating and voiding without difficulty. positive passing gas. Feeding without difficulty. Denies chest pain, shortness of breath, calf pain/swelling, fevers, chills, lightheadedness. - Physical Exam Vitals/I&O's: Vital Signs Temp Pulse Resp BP Pulse Ox 98.9 F 90 16 100/59 L 98 03/13/20 04:00 03/13/20 04:02 03/13/20 04:00 03/13/20 04:02 03/12/20 06:07 Oxygen Delivery Method Room Air Weight: 148 lb Body Mass Index (BMI) 25.4 Intake and Output for Last 24 Hours 03/11/20 03/12/20 03/13/20 23:59 23:59 23:59 Intake Total 2046.36 / 2046.36 Output Total 200 / 200 Balance 1846.36 / 1846.36 General: Alert, Oriented x3 Current Medications Acetaminophen (Tylenol) 1,000 mg PO Q8H PRN PRN PRN Reason: Pain Score 1-3/10 Bisacodyl (Dulcolax) 10 mg RECTAL UD PRN PRN Reason: If no BM Dibucaine (Dibucaine) 1 applic TOPICAL TID PRN PRN; Protocol PRN Reason: Discomfort Hydrocortisone (Hytone) 1 applic TOPICAL TID PRN PRN; Protocol PRN Reason: Discomfort Methylergonovine Maleate (Methergine) 0.2 mg IM X1 PRN PRN Reason: Excess bleeding/uterine atony Naproxen (Naprosyn) 500 mg PO Q8H PRN PRN PRN Reason: Pain Score 1-3/10 Ondansetron HCl (Zofran) 4 mg IV Q4H PRN PRN PRN Reason: Nausea Oxycodone HCl (Oxyir) 5 - 10 mg PO Q4H PRN PRN PRN Reason: Pain Score 4-10/10 Senna/Docusate Sodium (Senokot-S, July-Colace) 1 - 2 tablet PO DAILY PRN PRN PRN Reason: Constipation Simethicone (Mylicon) 80 mg PO PCHS PRN PRN Reason: Indigestion/Stomach pain Sodium Chloride () 5 - 15 ml IV UD PRN PRN Reason: SALINE FLUSH Medical Necessity - Tobacco Use Smoking Status: Never smoker Assessment/Plan All Active Problems (Last Reviewed 03/11/20 @ 09:26 by Fatou Rivas) UTI in (Acute) Supervision of high risk , antepartum (Acute) Grand multipara (Acute) H/O gestational diabetes in prior , currently (Acute) (Acute) AMA (advanced maternal age) multigravida 35+ (Acute) Active labor (Resolved) False labor (Resolved) Proteinuria affecting (Resolved) Sterilization (Resolved) Supervision of normal (Resolved) GBS (group B Streptococcus carrier), +RV culture, currently (Ruled-out) s/p PPD # 1 1. routine post delivery care 2. breast feeding- support given 3. rh positive 4. rubella immune
--- NOTE | 2020-03-13 07:23 | DCINST_ITS ---
Discharge Diet: No Restrictions Discharge Activity: Return to Normal Activity, May not drive while taking narcotic pain medications., May Shower May resume sexual activity in: 4-6 weeks Call your doctor if your incision/area has: Continuous Slow Oozing, Sudden Increased Bleeding, Increased Pain/ Swelling, Increased Redness, Foul Smelling Discharge Additional Instructions: If you experience any of the following, contact your healthcare provider. * Bleeding that soaks a pad every hour for 2 hours * Fever 100.4 or higher * Unrelieved incision or abdominal pain * Swelling, redness, discharge or bleeding from your incision or episiotomy site * Your incision begins to separate * Problems urinating (including inability to urinate or burning while urinating). * Visual changes * Severe headache * Flu-like symptoms * Pain or redness in one of both of your breasts * Pain, warmth, tenderness or swelling in your legs, especially the calf area * Frequent nausea and vomiting * Symptoms of depression or anxiety If you experience any of the following, call 911 or go to the nearest Emergency Room. * Chest pain * Problems breathing * Seizure activity * Partial or complete paralysis of a body part, slurred speech, weakness or drooping of the face, or a sudden inability to walk or hold your balance Allergies/Adverse Reactions: Allergies No Known Allergies Allergy (Verified 03/12/20 02:15) Medications to take at Discharge Prenatabs FA 1 tab PO DAILY 03/12/20 Please Follow Up With: Joanie Rocha MD - [phone] When: Call to make an appointment with your doctor in 6 weeks. If you had elevated Blood pressure or 4th degree laceration you will need to be seen in 2 weeks. Primary Care Physician: Care Physician,No Primary [Primary Care Provider] - Test Results: Test results from this visit will be discussed in further detail at your follow- up appointment, if applicable.
--- NOTE | 2020-03-13 07:23 | PCM.DCVAG ---
Discharge Diet: No Restrictions Discharge Activity: Return to Normal Activity, May not drive while taking narcotic pain medications., May Shower May resume sexual activity in: 4-6 weeks Call your doctor if your incision/area has: Continuous Slow Oozing, Sudden Increased Bleeding, Increased Pain/ Swelling, Increased Redness, Foul Smelling Discharge Additional Instructions: If you experience any of the following, contact your healthcare provider. Bleeding that soaks a pad every hour for 2 hours Fever 100.4 or higher Unrelieved incision or abdominal pain Swelling, redness, discharge or bleeding from your incision or episiotomy site Your incision begins to separate Problems urinating (including inability to urinate or burning while urinating). Visual changes Severe headache Flu-like symptoms Pain or redness in one of both of your breasts Pain, warmth, tenderness or swelling in your legs, especially the calf area Frequent nausea and vomiting Symptoms of depression or anxiety If you experience any of the following, call 911 or go to the nearest Emergency Room. Chest pain Problems breathing Seizure activity Partial or complete paralysis of a body part, slurred speech, weakness or drooping of the face, or a sudden inability to walk or hold your balance Allergies/Adverse Reactions: Allergies No Known Allergies Allergy (Verified 03/12/20 02:15) Medications to take at Discharge Prenatabs FA 1 tab PO DAILY 03/12/20 Please Follow Up With: Joanie Rocha MD - [phone] When: Call to make an appointment with your doctor in 6 weeks. If you had elevated Blood pressure or 4th degree laceration you will need to be seen in 2 weeks. Primary Care Physician: Care Physician,No Primary [Primary Care Provider] - Test Results: Test results from this visit will be discussed in further detail at your follow-up appointment, if applicable.
--- NOTE | 2020-03-13 13:49 | NURSING ---
Pt aware rubella status is pending. States she would refuse MMR at this time anyway and will follow up with her doctor for results.
[2020-03-14 08:50] LABS: Rubella IgG 309.7 IU/mL
[2020-03-14 09:32] LABS: Hepatitis C Antibody Non-Reactive (Nonreactive)
[2020-03-17 11:16] LABS: Rapid Plasmin Reagin (RPR) NONREACTIVE (NONREACTIVE)
== END 2020-03-13 15:25 | disposition home or self-care (01) | DRG 807 ==
LOC: WPOUT 01:59 → WP 01:59
PROVIDERS: Admitting Provider Obstetrics & Gynecology; Visit Provider Obstetrics & Gynecology
DX: O23.43 Unspecified infection of urinary tract in pregnancy, third trimester (principal); Z37.0 Single live birth; Z3A.39 39 weeks gestation of pregnancy; Z28.21 Immunization not carried out because of patient refusal
CPT/HCPCS: 59025; 59050; 85025; 86592; 86703; 86762; 86803; 86850; 86900; 86901; 87340; 87491; 87591; 99218; J7120; G0378

== ENCOUNTER → 2021-11-30 | Outpatient (CLI) | payer OTHER, SELFPAY ==
[2021-12-02 13:07] LABS: Chlamydia By Nucleic Acid AMP Negative (Negative)
[2021-12-02 13:10] LABS: Gonococcus By Nucleic Acid AMP Negative (Negative)
== END | disposition home or self-care (01) ==
PROVIDERS: Visit Provider Obstetrics & Gynecology
DX: O09.521 Supervision of elderly multigravida, first trimester (principal)
CPT/HCPCS: 87086; 87088; 87491; 87591

== ENCOUNTER → 2021-12-14 | Outpatient (CLI) | payer SELFPAY ==
--- NOTE | 2021-12-14 12:17 | US_ITS ---
EXAM: US FIRST TRIMESTER , TRANSABDOMINAL AND TRANSVAGINAL CLINICAL INDICATION: anatomy TECHNIQUE: Real-time transabdominal and transvaginal obstetrical ultrasound of the maternal pelvis and a first trimester with image documentation. Transvaginal imaging was used for better evaluation of the fetus and adnexa. This report was created using [employer] report generation technology. COMPARISON: None. FINDINGS: GESTATION: There is a single intrauterine gestation. The fetus is in cephalic position. heart rate is 160 bpm. Gestational age is 19 weeks 3 days. ANATOMY: There is a three-vessel cord, four-chamber heart, extremities spine kidneys identified. Femur measures 2.7 cm age 18 weeks 1 day. LADARIUS: LADARIUS is 05/07/2022. EFW: Estimated weight is 228 g. BPD: Biparietal diameter is 4.1 cm age 18 weeks 3 days. HC: Head circumference is 15.4 cm age 18 weeks 2 days. AC: Abdominal circumference is 12.5 cm age 18 weeks 0 days. PLACENTA/AMNIOTIC FLUID: The placenta is anterior. UTERUS/CERVIX: The cervix measures 4.3 cm. No myometrial mass. OVARIES: Unremarkable. No mass. FREE FLUID: The largest fluid pocket measures 4.4 x 5.2 cm. US/OB Anatomy Scan IMPRESSION: Intrauterine gestation with an average ultrasound age of 18 weeks 2 days and an estimated due date of 05/15/2022. heart rate is 160 bpm. Electronically Signed: Esteban Calix MD at 20:50 EDT ,
== END | disposition home or self-care (01) ==
LOC: OPUS 12:12
PROVIDERS: Visit Provider Obstetrics & Gynecology
DX: O09.522 Supervision of elderly multigravida, second trimester (principal); Z3A.18 18 weeks gestation of pregnancy
CPT/HCPCS: 76805; 76817

== ENCOUNTER → 2022-01-29 | Outpatient (CLI) | payer SELFPAY ==
[2022-01-29 11:19] LABS: Absolute Lymphocyte Count 1.97 X10^3/uL (0.83-4.51); Absolute Neutrophil Count 7.9 X10^3/uL (2.0-7.7); Basophil# 0.06 X10^3/uL; Basophil% 0.6 % (0-1); Eosinophils% 0.9 % (0-5); Hematocrit 33.5 % (37-47); Hemoglobin 11.2 g/dL (12.0-15.0); Lymphocyte # 1.97 X10^3/ul (0.83-4.51); Lymphocyte % 18.3 % (19-41); Mean Corp Hgb Conc 33.4 g/dL (32-36); Mean Corpuscular Hgb 32.7 pg (27.0-32.0); Mean Platelet Vol. 8.6 fl (6.2-12.0); Monocyte# 0.59 X10^3/uL; Monocyte% 5.5 % (0-10); NRBC Flagged by Analyzer 0 % (0-5); Neutrophil # 7.91 X10^3/uL (2.7-7.7); Neutrophil % 73.6 % (47-70); Platelet Count 209 K/mm3 (150-450); RBC Distribution Width SD 46.5 fl (35.1-43.9); Red Blood Count 3.42 M/mm3 (4.2-5.4); White Blood Count 10.8 K/mm3 (4.4-11.0)
[2022-01-29 11:42] LABS: Rubella IgG Reactive (Nonreactive)
== END | disposition home or self-care (01) ==
LOC: PAVLAB 11:08
PROVIDERS: Referring Provider Obstetrics & Gynecology; Visit Provider Obstetrics & Gynecology
DX: O09.521 Supervision of elderly multigravida, first trimester (principal); Z3A.00 Weeks of gestation of pregnancy not specified
CPT/HCPCS: 36415; 85025; 86762; 86850; 86900; 86901

== ENCOUNTER → 2022-02-16 | Outpatient (CLI) | payer OTHER, SELFPAY ==
[2022-02-16 10:36] LABS: Absolute Lymphocyte Count 1.67 X10^3/uL (0.83-4.51); Absolute Neutrophil Count 6.9 X10^3/uL (2.0-7.7); Basophil# 0.03 X10^3/uL; Basophil% 0.3 % (0-1); Eosinophil# 0.08 X10^3/uL; Eosinophils% 0.9 % (0-5); Hematocrit 31.8 % (37-47); Hemoglobin 10.6 g/dL (12.0-15.0); Lymphocyte # 1.67 X10^3/ul (0.83-4.51); Lymphocyte % 17.9 % (19-41); Mean Corp Hgb Conc 33.3 g/dL (32-36); Mean Corpuscular Hgb 32.6 pg (27.0-32.0); Mean Corpuscular Volume 97.8 fL (81-99); Mean Platelet Vol. 8.6 fl (6.2-12.0); Monocyte# 0.53 X10^3/uL; Monocyte% 5.7 % (0-10); NRBC Flagged by Analyzer 0 % (0-5); Neutrophil # 6.92 X10^3/uL (2.7-7.7); Neutrophil % 73.9 % (47-70); Platelet Count 183 K/mm3 (150-450); RBC Distribution Width CV 13.2 % (11.6-14.6); RBC Distribution Width SD 47.1 fl (35.1-43.9); Red Blood Count 3.25 M/mm3 (4.2-5.4); White Blood Count 9.4 K/mm3 (4.4-11.0)
[2022-02-16 10:47] LABS: Glucose Challenge Gest 1H 50g 123 mg/dL (70-140)
== END | disposition home or self-care (01) ==
PROVIDERS: Referring Provider Nurse Practitioner Women's Health; Visit Provider Nurse Practitioner Women's Health
DX: Z34.90 Encounter for supervision of normal pregnancy, unspecified, unspecified trimester (principal); Z13.1 Encounter for screening for diabetes mellitus
CPT/HCPCS: 36415; 82950; 85025

== ENCOUNTER → 2022-04-17 | Outpatient (CLI) | payer SELFPAY | END | disposition home or self-care (01) | LOC: LABSPEC 16:22 | PROVIDERS: Visit Provider Registered Nurse | DX: Z36.85 Encounter for antenatal screening for Streptococcus B (principal) | CPT/HCPCS: 87081 ==

== ENCOUNTER → 2022-04-30 | Outpatient (CLI) | payer OTHER, SELFPAY ==
[2022-04-30 17:11] LABS: Hematocrit 35.5 % (37-47); Hemoglobin 11.9 g/dL (12.0-15.0); Mean Corp Hgb Conc 33.5 g/dL (32-36); Mean Corpuscular Volume 98.3 fL (81-99); Platelet Count 169 K/mm3 (150-450); RBC Distribution Width CV 13.2 % (11.6-14.6); RBC Distribution Width SD 47.5 fl (35.1-43.9); Red Blood Count 3.61 M/mm3 (4.2-5.4); White Blood Count 8.8 K/mm3 (4.4-11.0)
[2022-05-01 01:41] LABS: Xtra Tube EP Lab EXTRA TUBE
== END | disposition home or self-care (01) ==
LOC: LAB 17:01
PROVIDERS: Referring Provider Obstetrics & Gynecology; Visit Provider Obstetrics & Gynecology
DX: O99.013 Anemia complicating pregnancy, third trimester (principal); O09.529 Supervision of elderly multigravida, unspecified trimester; Z3A.00 Weeks of gestation of pregnancy not specified
CPT/HCPCS: 36415; 85027

== ENCOUNTER 2022-05-19 03:00 | Inpatient (IN) | payer SELFPAY, OTHER ==
[2022-05-19] VITALS (28 sets, daily range): BP systolic 95–140; BP diastolic 53–84; PULSE 77–118; RESP 14–16; TEMP 36.3–37.2; O2SAT 91–98; BMI 26.4
[2022-05-19] MEDS: Lactated Ringers 1,000 ML 200 ML IV (03:24)
[2022-05-19 03:40] LABS: Absolute Lymphocyte Count 1.91 X10^3/uL (0.83-4.51); Absolute Neutrophil Count 8.9 X10^3/uL (2.0-7.7); Basophil# 0.03 X10^3/uL; Basophil% 0.3 % (0-1); Eosinophil# 0.05 X10^3/uL; Eosinophils% 0.4 % (0-5); Hematocrit 35.2 % (37-47); Hemoglobin 12.6 g/dL (12.0-15.0); Lymphocyte # 1.91 X10^3/ul (0.83-4.51); Lymphocyte % 16.6 % (19-41); Mean Corp Hgb Conc 35.8 g/dL (32-36); Mean Corpuscular Hgb 33.6 pg (27.0-32.0); Mean Corpuscular Volume 93.9 fL (81-99); Mean Platelet Vol. 9.1 fl (6.2-12.0); Monocyte# 0.54 X10^3/uL; Monocyte% 4.7 % (0-10); NRBC Flagged by Analyzer 0 % (0-5); Neutrophil # 8.92 X10^3/uL (2.7-7.7); Neutrophil % 77.6 % (47-70); Platelet Count 209 K/mm3 (150-450); RBC Distribution Width CV 12.8 % (11.6-14.6); RBC Distribution Width SD 44.1 fl (35.1-43.9); Red Blood Count 3.75 M/mm3 (4.2-5.4); White Blood Count 11.5 K/mm3 (4.4-11.0)
[2022-05-19 03:56] LABS: ALB/GLOB Ratio 0.7 RATIO (0.9-2.4); AST(SGOT) 27 U/L (15-37); Alanine Aminotransfer ALT/SGPT 30 U/L (13-56); Albumin, Serum 2.5 g/dL (3.2-5.0); Alkaline Phosphatase 74 U/L (45-117); Anion Gap 7 (5-15); BUN 7 mg/dL (7-18); BUN/Creat Ratio 12.1 RATIO (10-20); Calcium,Total 8.4 mg/dL (8.5-10.1); Chloride 103 mmol/L (98-107); Creatinine, Serum 0.58 mg/dL (0.55-1.02); EST Glomerular Filtration Rate 124 mL/min (>60); Est Glom Filt Rate - Afr Amer 150 mL/min (>60); Estimated Creatinine Clearance 113.57 ml/min; Globulin 3.7 g/dL (2.2-4.2); Glucose 106 mg/dL (74-106); Potassium 3.8 mmol/L (3.5-5.1); Protein, Total 6.2 g/dL (6.4-8.2); Sodium Level 134 mmol/L (136-145)
[2022-05-19 04:56] LABS: HIV - WCH Non-Reactive (Nonreactive); Hepatitis B Surface Antigen Non-Reactive (Nonreactive); Hepatitis C Antibody Non-Reactive (Nonreactive)
[2022-05-19] MEDS: Oxytocin 10 UNITS/ML Vial IM (08:54)
--- NOTE | 2022-05-19 08:56 | HP.PCM.OB_ITS ---
HPI - General General Date of Admission: 05/19/22 HPI Narrative HALI REEVES, is a 36 F who presents IAL 6 cm dilated regular ctx q 6-7 min no vb lof good fm Maternal Data Information LADARIUS Calculator Estimated Delivery Date Method Current WG Current Estimate 05/15/22 LMP (Certain) 40w 4d Other Estimates 05/12/22 Ultrasound #1 41w 0d PFSH PFSH Medical History (Updated 05/19/22 @ 08:[address] Joanie Rocha MD) Gestational diabetes Pre-eclampsia Superficial varicosities Home Medications vitamin #56-iron 35 mg and 5 mg-folic acid 1 mg-dha capsule 1 cap PO DAILY 05/02/20 [History Last Taken 05/18/22] Allergy/AdvReac Type Severity Reaction Status Date / Time No Known Allergies Allergy Verified 05/11/22 12:04 Family History Grandfather Myocardial infarction Cancer prostate Grandmother Cancer Surgical History No significant past surgical history Social History adopted: No household members: family housing: house number of children: 6 current occupational exposures/hazards: No history of recent travel: No sexually active: Yes Smoking Status: Never smoker second hand exposure: No alcohol intake: never substance use type: does not use caffeine: Yes what type of physical activity do you participate in: none seatbelt use: always do you feel safe at home: Yes additional social history: [employer] 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 Date Name GA/Weeks Outcome Route Bth Weight Gen Labor Lgth Anesthesia Del Locatn Provider FOB Unknown 2007 Reid 41 live - full term 8lbs 7oz Male epidural [facility] Veronica Dowling Unknown 2009 Miscarriage Unknown 2011 Angelika 39 live - full term 8 lbs Female none [facility] SM Unknown 2013 Zan 39 live - full term 8 pounds 6 oz Male none [facility] Unknown 2015 Mamadou 39 live - full term 9 1/2 pounds Male none [facility] [place] 03/05/18 Juan 38 live - full term 8lbs 15oz Male n one [facility] EDUARDO 03/13/20 Amanda 39 live - full term 7lbs 7oz Female [facility] Aj Delivery Date: Last Updated by: Tyra Garcia toxemia Delivery Date: Last Updated by: Joanie Rocha MD GDM Visit Details Expected Delivery Route/Plan Labor Preferences- labor support person: labor intervention preferences: minimal pain management options preferred:unmedicated cut cord/dad catch: [] :yes PP control planned: discussed possible routes of delivery and associated risks: [] special requests: [] Plans Covid status: discussed Flu vaccine: discussed Tdap vaccine: declined Rhogam: na LARC form signed: declined. movement and labor precautions reviewed. Problem list reviewed and updated with the most current plan of care details and appropriate orders placed. Relevant counseling for the gestational age provided. Continue routine care and follow up unless otherwise noted in visit notes/problem list details OB Flowsheet Initial Weight: Not Recorded Date -?-?-?-?-?-?-?-?-?-?-?-?- EGA Weight BP Urine Prot -?-?-?-?-?-?-?-?-?-?-?-?- Glucose FHR FuHt Pres Dilation -?-?-?-?-?-?-?-?-?-?-?-?- Effaced St Visit Note 11/30/21 -?-?-?-?-?-?-?-?-?-?-?-?- 16w 2d 118 lb 6 oz 110/82 -?-?-?-?-?-?-?-?-?-?-?-?- 145 -?-?-?-?-?-?-?-?-?-?-?-?- JV- femur measur ing 17 weeks, ac measuring 17 weeks, head circumference is 15 weeks 6 days, and CRL is 16 weeks 5 days. all still within range of LMP on 07/31/21. will reschedule anatomy ultrasound and LADARIUS will be consistent with LMP 05/07/22 12/28/21 -?-?-?-?-?-?-?-?-?-?-?-?- 20w 2d 126 lb 2 oz 110/60 Nega tive -?-?-?-?-?-?-?-?-?-?-?-?- Negative 142 -?-?-?-?-?-?-?-?-?-?-?-?- JV- no lof, vagi nal bleeding, or cramping. anatomy ultrsound addendum was normal 38th%. 01/29/22 -?-?-?-?-?-?-?-?-?-?-?-?- 24w 6d 132 lb 4 oz 98/60 Nega tive -?-?-?-?-?--?-?-?-?-?-?-?- Negative 161 -?-?-?-?-?-?-?-?-?-?-?-?- MH-No VB, LOF. G ood FM. Will get SP labs today 02/16/22 -?-?-?-?-?-?-?-?-?-?-?-?- 27w 3d 134 lb 4 oz 110/60 Nega tive -?-?-?-?-?-?-?-?-?-?-?-?- Negative 145 27 -?-?-?-?-?-?-?-?-?-?-?-?- SM- SM- no vb lof good fm n oreg ular ctx reveiwed labs 03/06/22 -?-?-?-?-?-?-?-?-?-?-?-?- 30w 0d 138 lb 6 oz 108/70 Nega tive -?-?-?-?-?-?-?-?-?-?-?-?- Negative 150 30 Unstable -?-?-?-?-?-?-?-?-?-?-?-?- JV- no lof ,vagi nal bleeding, or dec fm 03/22/22 -?-?-?-?-?-?-?-?-?-?-?-?- 32w 2d 141 lb 102/74 -?-?-?-?-?-?-?-?-?-?-?-?- 140 32 Breech -?-?-?-?-?-?-?-?-?-?-?-?- SM- no vb lof go od fm no regular ctx 04/04/22 -?-?-?-?-?-?-?-?-?-?-?-?- 34w 1d 144 lb 6 oz 118/70 Nega tive -?-?-?-?-?-?-?-?-?-?-?-?- Negative 159 34 Oblique -?-?-?-?-?-?-?-?-?-?-?-?- JV- no lof, vagi nal bleeding, or dec fm. plan to scan for position next visit and rpt cbc. 04/17/22 -?-?-?-?-?-?-?-?-?-?-?-?- 36w 0d 146 lb 111/74 Negative -?-?-?-?-?-?-?-?-?-?-?-?- Negative 143 36 Breech -?-?-?-?-?-?-?-?-?-?-?-?- LC-good FM, phyllis es lof,vb,ctx. continues breech by iker, discussed ECV, will arrange if remains breech next week. reviewed c/s delivery if fetus remains breech. gbs collected LC-good FM, denies lof,vb,ct x. continues breech by iker, discussed ECV, will arrange if remains breech next week. reviewed c/s delivery if fetus remains breech. gbs collected. rpt cbc ordered. 04/27/22 -?-?-?-?-?-?-?-?-?-?-?-?- 37w 3d 150 lb 123/79 -?-?-?-?-?-?-?-?-?-?-?-?- 135 37 Cephalic 1 -?-?--?-?-?-?-?-?-?-?-?-?- SM- no vb lof go od fm no regular ctx 05/04/22 -?-?-?-?-?-?-?-?-?-?-?-?- 38w 3d 149 lb 114/84 -?-?-?-?-?-?-?-?-?-?-?-?- 135 39 Cephalic 1.5 -?-?-?-?-?-?-?-?-?-?-?-?- SM- no vb lof go od fm no regular ctx 05/09/22 -?-?-?-?-?-?-?-?-?-?-?-?- 39w 1d 153 lb 8 oz 137/79 Nega tive -?-?-?-?-?-?-?-?-?-?-?-?- Negative 140 Cephalic 2 -?-?-?-?-?-?-?-?-?-?-?-?- 80 -1 -reactiv e NST. Concerned with position and is vertex 05/11/22 -?-?-?-?-?-?-?-?-?-?-?-?- 39w 3d 151 lb 8 oz 111/77 -?-?-?-?-?-?-?-?-?-?-?-?- -?-?-?-?-?-?-?-?-?-?-?-?- SM for JV today, labor precautions discussed. 05/18/22 -?-?-?-?-?-?-?-?-?-?-?-?- 40w 3d 152 lb 120/80 -?-?-?-?-?-?-?-?-?-?-?-?- 140 41 Cephalic 3 -?-?-?-?-?--?-?-?-?-?-?-?- 70 -1 SM- no vb lof good fm no regular ctx bo 20 cm MVP 7cm nst now, patient prefers exp mangagement, plan IOL saturday morning 05/19/22 -?-?-?-?-?-?-?-?-?-?-?-?- 40w 4d 153 lb 14.122 oz 140 /83 121/80 139/84 119/73 122/76 122/74 -?-?-?-?-?-?-?-?-?-?-?-?- -?-?-?-?-?-?-?-?-?-?-?-?- NST FHR Rate Baby A Baseline: 120 Variability:: Moderate Accelerations:: 15 x 15 Decelerations:: None NST Reactive:: Yes FHR Category:: Category I Uterine Activity:: q 6-7 ROS Constitutional Constitutional: Reports systems reviewed and no addt'l complaints, except as documented ENT HEENT: Reports systems reviewed and no addt'l complaints, except as documented Cardiovascular Cardiovascular: Reports systems reviewed and no addt'l complaints, except as documented Respiratory/Chest Respiratory/Chest: Reports systems reviewed and no addt'l complaints, except as documented Gastrointestinal Gastrointestinal: Reports systems reviewed and no addt'l complaints, except as documented and nausea; Denies abdominal pain Genitourinary Genitourinary: Reports systems reviewed and no addt'l complaints, except as documented, contractions Details: present and frequency (regular ) and movement Details: present Musculoskeletal Musculoskeletal: Reports systems reviewed and no addt'l complaints, except as documented Integumentary Integumentary: Reports as per HPI Neurologic Neurologic: Reports systems reviewed and no addt'l complaints, except as documented Endocrine Endocrinology: Reports systems reviewed and no addt'l complaints, except as documented Vital Signs Vital Signs Vital Signs: 05/19/22 03:10 05/19/22 03:10 05/19/22 03:12 Temperature Temperature Source Temporal Pulse Rate 104 H Blood Pressure 140/83 H BP Systolic 140 BP Diastolic 83 Pulse Ox 05/19/22 03:12 05/19/22 03:12 05/19/22 04:00 Temperature 98.6 F Temperature Source Pulse Rate Blood Pressure 121/80 H BP Systolic 121 BP Diastolic 80 Pulse Ox 98 05/19/22 04:00 05/19/22 04:00 05/19/22 04:00 Temperature Temperature Source Temporal Pulse Rate 116 H Blood Pressure BP Systolic BP Diastolic Pulse Ox 98 05/19/22 04:00 05/19/22 04:00 05/19/22 04:50 Temperature 98.6 F Temperature Source Pulse Rate 118 H Blood Pressure BP Systolic BP Diastolic Pulse Ox 98 05/19/22 04:50 05/19/22 04:54 05/19/22 04:54 Temperature Temperature Source Pulse Rate 112 H Blood Pressure 139/84 H BP Systolic 139 BP Diastolic 84 Pulse Ox 97 05/19/22 04:51 05/19/22 04:51 05/19/22 05:54 Temperature 98.6 F Temperature Source Temporal Pulse Rate Blood Pressure 119/73 BP Systolic 119 BP Diastolic 73 Pulse Ox 05/19/22 05:54 05/19/22 05:53 05/19/22 05:54 Temperature Temperature Source Temporal Pulse Rate 113 H Blood Pressure BP Systolic BP Diastolic Pulse Ox 98 05/19/22 05:54 05/19/22 05:54 05/19/22 07:20 Temperature 98.8 F Temperature Source Pulse Rate Blood Pressure 122/76 H BP Systolic 122 BP Diastolic 76 Pulse Ox 98 05/19/22 07:20 05/19/22 07:20 05/19/22 07:20 Temperature 98.7 F Temperature Source Temporal Pulse Rate 114 H Blood Pressure BP Systolic BP Diastolic Pulse Ox 05/19/22 08:49 05/19/22 08:49 05/19/22 08:50 Temperature Temperature Source Temporal Pulse Rate 98 Blood Pressure 122/74 H BP Systolic 122 BP Diastolic 74 Pulse Ox 05/19/22 08:54 05/19/22 08:54 05/19/22 08:50 Temperature 98.0 F Temperature Source Pulse Rate 98 Blood Pressure BP Systolic BP Diastolic Pulse Ox 95 Weight Weight: 153 lb 14.122 oz Body Mass Index (BMI) 26.4 Physical Exam Const alert, oriented x3 and healthy appearing Constitutional Narrative: uncomfortable with contractions HEENT normocephalic and moist oral mucous membranes Head and Scalp: atraumatic Neck full ROM, no lymphadenopathy, supple and thyroid normal General: trachea midline Thyroid: thyroid normal Lymph Lymphatic: no lymphadenopathy noted Chest inspection of chest normal Resp normal respiratory effort Cardio regular rate GI normal to inspection, nondistended, normoactive bowel sounds, soft to palpation and non-tender Inspection: gravid external exam normal Bimanual Exam - Vag & Uterus: uterus non-tender Manual OB Exam: estimated gestational size appropriate, presentation cephalic, dilated, effaced and station Extremity normal to inspection General Extremity: Negative for edema Skin no rashes or lesions noted Neuro deep tendon reflexes 2+ bilaterally Motor Exam: strength 5/5 throughout and clonus absent Psych mental status grossly normal Labs Labs Labs: Blood Type A POSITIVE Antibody Screen NEGATIVE Hct 35.2 % (37-47) L Hgb 12.6 g/dL (12.0-15.0) Obstetrics US Syphilis Total Ab Pending Rubella IgG Antibody Reactive (Nonreactive) Hep Bs Antigen Non-Reactive (Nonreactive) Chlamydia DNA (TOBI) Negative (Negative) Neisseria gonorrhoeae DNA (TOBI) Negative (Negative) HIV 1&2 Antibody Non-Reactive (Nonreactive) Glucose 1 Hr 50 gm 123 mg/dL (70-140) Group B Strep DNA Negative (Negative) Rhogam given: No Assessment & Plan (1) Supervision of high risk elderly multigravida in first trimester: COMMENT: PRR(SP) LADARIUS 05/15/22 Angelika Lainez Jamin, Ivan, Isaiah, Amanda Scott (2) : QUALIFIERS: Weeks of gestation: 40 weeks Qualified Code(s): Z3A.40 - 40 weeks gestation of COMMENT: negative GBS, declined genetic, carrier, and ntd screen. dec std labs at [facility], agrees to have drawn at delivery. nl anatomy (3) AMA (advanced maternal age) multigravida 35+: COMMENT: declined genetic testing. growth us at 36 weeks (4) Anemia affecting in third trimester: COMMENT: iron supplement recommended PLAN: Plan admit IAL exp management
--- NOTE | 2022-05-19 09:00 | OP.PCM_ITS ---
Assessment & Plan (1) Vaginal delivery: COMMENT: SM IAL moderate shoulder dystocia nc x 1. boy [place] 40 (2) Supervision of high risk elderly multigravida in first trimester: COMMENT: PRR(SP) LADARIUS 05/15/22 Angelika Lainez Jamin, Ivan, Isaiah, Amanda Scott (3) : QUALIFIERS: Weeks of gestation: 40 weeks Qualified Code(s): Z3A.40 - 40 weeks gestation of COMMENT: negative GBS, declined genetic, carrier, and ntd screen. dec std labs at [facility], agrees to have drawn at delivery. nl anatomy (4) AMA (advanced maternal age) multigravida 35+: COMMENT: declined genetic testing. growth us at 36 weeks (5) Anemia affecting in third trimester: COMMENT: iron supplement recommended Maternal Data Information LADARIUS Calculator Estimated Delivery Date Method Current WG Current Estimate 05/15/22 LMP (Certain) 40w 4d Other Estimates 05/12/22 Ultrasound #1 41w 0d Vaginal Delivery Operative Information Date of Procedure: 05/19/22 Pre-Operative Diagnosis: IAL Post-Operative Diagnosis: same Surgery / Procedure Performed: Spontaneous Vaginal Delivery Type of Anesthesia: None Special Medications: none Estimated Blood Loss: 200 Fluids Replaced: crystalloid Findings Description of Procedure: Patient began pushing and delivered the head in the ORLIN presentation. The head was delivered atraumatically and then a shoudler dystocia was identified, all staff called immediately, renetta verdugo and suprapubic pressure applied without remedy. woodscrew maneuver and attempt to deliver the posterior arm was made, nc x 1 infant delivered through. the left shoulder delivered anterior. The anterior and posterior shoulders delivered without complication then and were followed by the rest of the infant and the was placed on the maternal abdomen. total duration 1 minute 46 seconds immediate cord clamping was employed. Cord was clamped and cut and gentle traction was applied to the cord and the placenta delivered spontaneously immediately following it was noted to be intact with three-vessel cord. The perineum and vagina were inspected and noted to have no laceration. EBL was 200. Patient and tolerated delivery well. Presentation: ORLIN Amniotic Membrane Rupture Type: Artificial Amniotic Fluid Description: Clear Placental Delivery Description: Spontaneous Placenta Disposition: [facility] Cord Vessel Description: 3 Vessels Cord Entanglement: Around neck x 1, tight A Gender: Male Delayed Cord Clamping: No Post Vaginal Delivery Medications Given After Delivery: - (im pitocin) Episiotomy Description: None Laceration: None Complication Complications: None Procedures Urinary/Genital [id number]: [id number] Vaginal Delivery [facility]
--- NOTE | 2022-05-19 09:05 | DCINST_ITS ---
Discharge Instructions Diet Discharge Diet: No restrictions Activity Discharge Activity: Return to Normal Activity, May Drive, May Shower and May Take a Tub Bath (in 4 weeks) May resume sexual activity in: 6-8 weeks (after seen by OB provider) Weight Bearing Status: Full weight bearing Lifting Restrictions: none Dressing / Incision Call your doctor if you observe: Fever of 101 or Higher, Inability to urinate, Using more than 1 pad per hour (for more than 2 hours in a row or more), Shortness of breath, Dizziness, Chest pain and - (headache not controlled with tylenol, change in vision) Follow Up Care When: in 6 weeks for visit, call the office to make the appointment. If you had elevated blood pressures call the office to be seen within 1 week. Test Results: Test results from this visit will be discussed in further detail at your follow- up appointment, if applicable. Discharge Plan Admission Admit Date/Time: 05/19/22 03:00 Attending Provider: Joanie Rocha Primary Care Provider: Care Physician,Jessica Primary Discharge Orders/Prescriptions Prescriptions: No Action vitamin #56-iron 35 mg and 5 mg-folic acid 1 mg-dha capsule 35 mg iron-5 mg iron-1 mg capsule 1 cap PO DAILY Referrals / Follow Up: Care Physician,No Primary [Primary Care Provider] - Disposition Disposition (needs filled in before D/C Order can be placed): Home, Self Care
--- NOTE | 2022-05-19 10:20 | NURSING ---
See shoulder dystocia check list.
[2022-05-19] MEDS: Methylergonovine 0.2 MG/ML Ampul IM (10:25)
[2022-05-19] MEDS: Naproxen 500 MG Tablet PO (11:16)
--- NOTE | 2022-05-19 11:50 | NURSING ---
Phone call placed to Dr. Rocha about pts pain level of 8/10 for uterine cramping. RN took pt to bathroom-emptied bladder for 600 ml. Heating pad applied. Naproxyn given. Vagina assessed for hematoma-none noted. VSS. Gave methergine for increased bleeding and clots during recovery. Plan is to continue to monitor and call MD if anything changes.
[2022-05-19] MEDS: Acetaminophen 500 MG Tablet 1000 MG PO ×2 (12:28→18:41)
[2022-05-20 03:16] VITALS: O2SAT 96
[2022-05-20 03:17] VITALS: BP 110/68; PULSE 72; PULSE 75; RESP 14; TEMP 36.3; O2SAT 96
[2022-05-20 07:42] VITALS: BP 98/59; PULSE 78; PULSE 79; RESP 16; TEMP 36.7; O2SAT 96
--- NOTE | 2022-05-20 07:59 | PCM.PN.OB ---
Subjective Subjective Patient doing well without complaints. Tolerating PO. Ambulating and voiding without difficulty. feeding well. Denies chest pain, shortness of breath, calf pain/swelling, fevers, chills, lightheadedness. Objective Data Objective Data Vital Signs: Vital Signs Temp Pulse Resp BP Pulse Ox O2 Del Method 98.1 F 78 16 98/59 L 96 Room Air 05/20/22 07:42 05/20/22 07:42 05/20/22 07:42 05/20/22 07:42 05/20/22 07:42 05/20/22 07:42 Oxygen Delivery Method Room Air Weight: 153 lb 14.122 oz Body Mass Index (BMI) 26.4 Intake & Output: Intake and Output for Last 24 Hours 05/18/22 05/19/22 05/20/22 23:59 23:59 23:59 Intake Total 1120 / 1120 Output Total 1300 / 1300 Balance -180 / -180 Lab / Micro Data Result Diagrams: 05/19/22 03:20 05/19/22 03:24 Micro: Microbiology 05/19/22 03:25 Nasal Secretion SARS-CoV-2 Antigen (Rapid) - Final ROS Constitutional Constitutional: Reports systems reviewed and no addt'l complaints, except as documented Cardiovascular Cardiovascular: Reports systems reviewed and no addt'l complaints, except as documented Respiratory/Chest Respiratory/Chest: Reports systems reviewed and no addt'l complaints, except as documented Gastrointestinal Gastrointestinal: Reports systems reviewed and no addt'l complaints, except as documented Physical Exam Const alert, oriented x3 and no apparent distress HEENT Head and Scalp: atraumatic Resp normal respiratory effort GI soft to palpation and non-tender Bimanual Exam - Vag & Uterus: uterus non-tender Uterus Palpation: uterus fundus firm (below Umbilicus) Assessment & Plan (1) Vaginal delivery: COMMENT: SM IAL moderate shoulder dystocia nc x 1. boy [place] 40 PLAN: Plan s/p PPD # 1 1. routine post delivery care 2. breast feeding- support given 3. rh positive 4. rubella immune
[2022-05-20 12:53] VITALS: BP 102/60; PULSE 87; RESP 16; TEMP 37; O2SAT 97
[2022-05-21 08:39] LABS: Syphilis Antibodies Non-reactive
== END 2022-05-20 14:15 | disposition home or self-care (01) | DRG 807 ==
PROVIDERS: Admitting Provider Obstetrics & Gynecology; Visit Provider Obstetrics & Gynecology
DX: O99.02 Anemia complicating childbirth (principal); Z37.0 Single live birth; O32.1XX0 Maternal care for breech presentation, not applicable or unspecified; O66.0 Obstructed labor due to shoulder dystocia; Z3A.40 40 weeks gestation of pregnancy; O69.1XX0 Labor and delivery complicated by cord around neck, with compression, not applicable or unspecified; Z87.59 Personal history of other complications of pregnancy, childbirth and the puerperium
CPT/HCPCS: 59025; 59050; 80053; 85025; 86703; 86780; 86803; 86850; 86900; 86901; 87340; 87426; 99218; J7120; G0378

== ENCOUNTER → 2025-01-15 | Outpatient (CLI) | payer SELFPAY ==
[2025-01-15 12:18] LABS: Absolute Lymphocyte Count 2.33 X10^3/uL (0.83-4.51); Absolute Neutrophil Count 3.9 X10^3/uL (2.0-7.7); Basophil# 0.06 X10^3/uL; Basophil% 0.9 % (0-1); Eosinophil# 0.15 X10^3/uL; Eosinophils% 2.2 % (0-5); Hematocrit 37.1 % (37-47); Hemoglobin 12.2 g/dL (12.0-15.0); Lymphocyte # 2.33 X10^3/ul (0.83-4.51); Lymphocyte % 33.7 % (19-41); Mean Corp Hgb Conc 32.9 g/dL (32-36); Mean Corpuscular Volume 94.4 fL (81-99); Mean Platelet Vol. 9.4 fl (6.2-12.0); Monocyte# 0.49 X10^3/uL; Monocyte% 7.1 % (0-10); NRBC Flagged by Analyzer 0 % (0-5); Neutrophil # 3.86 X10^3/uL (2.7-7.7); Neutrophil % 55.8 % (47-70); Platelet Count 261 K/mm3 (150-450); RBC Distribution Width SD 42.2 fl (35.1-43.9); Red Blood Count 3.93 M/mm3 (4.2-5.4); White Blood Count 6.9 K/mm3 (4.4-11.0)
[2025-01-19 08:08] LABS: HPV APTIMA, High Risk Negative (Negative)
== END | disposition home or self-care (01) ==
PROVIDERS: Referring Provider Obstetrics & Gynecology; Visit Provider Obstetrics & Gynecology
DX: N93.9 Abnormal uterine and vaginal bleeding, unspecified (principal); Z12.4 Encounter for screening for malignant neoplasm of cervix
CPT/HCPCS: 36415; 84443; 85025; 87624; 88175; G0145

== ENCOUNTER → 2025-02-01 | Outpatient (CLI) | payer SELFPAY ==
--- NOTE | 2025-02-01 09:08 | US_ITS ---
PROCEDURE: PELVIC W/ TRANSVAGINAL REASON FOR EXAM: AUB TECHNIQUE: PELVIC W/ TRANSVAGINAL COMPARISON: None FINDINGS: LMP: February 01, 2025. Measurements: Uterus: 9.9 cm x 6.7 cm x 5.6 cm with a volume of 194.36 mL nabothian cyst. Endometrial Thickness: 10.7 mm heterogeneous. Right Ovary: 3.4 cm x 2.1 cm x 1.8 cm with a volume of 6.64 mL. Left Ovary: 3.98 cm x 1.38 cm x 1.867 mm with a volume of 5.3 cm mL. TRANSABDOMINAL: Uterus: Bulky heterogeneous appearance of the myometrium suggestive of fibroid change although no focal fibroid is seen. Endometrium: Measures 10.7 mm. Right ovary: There is a 2 cm x 1.8 cm 1.7 cm heterogeneous follicle. Left ovary: 4 cm x 1.9 cm 1.4 cm Other: No large pelvic mass identified. Transvaginal sonography was performed to better visualize the endometrium. TRANSVAGINAL: Uterus: Heterogeneous myometrial architecture in keeping with a fibroid change although no focal fibroid is seen. Endometrium: Endometrium measures 10.7 mm. Right ovary: 2 cm x 1.8 cm 1.7 cm heterogeneous right ovarian follicle. Left ovary: Normal size and echotexture. Other adnexal findings: None. Cul-de-sac: No free intraperitoneal fluid identified. Tenderness: No tenderness US/Pelvic w/ Transvaginal IMPRESSION: Heterogeneous appearance of the myometrium suggestive of fibroid change althoug h no focal fibroid is seen. Reading Location: [place] [id number]
== END | disposition home or self-care (01) ==
LOC: OPUS 09:07
PROVIDERS: Referring Provider Obstetrics & Gynecology; Visit Provider Obstetrics & Gynecology
DX: N93.9 Abnormal uterine and vaginal bleeding, unspecified (principal)
CPT/HCPCS: 76830; 76856